=== PATIENT | female | born 1975 | race Caucasian/White ===

== ENCOUNTER 2017-02-18 12:09 | Emergency (ER) | payer OTHER ==
[~2017-02-18] VITALS: Ht 167.6 cm; Wt 80.1 kg
[2017-02-18] MEDS ORDERED: PREDNISONE20 MG PO (13:46)
[2017-02-18] MEDS ORDERED: KEFLEX500 MG PO (13:46)
== END 2017-02-18 13:57 | disposition home or self-care (01) ==
LOC: EME 12:09
DX: T63.441A Toxic effect of venom of bees, accidental (unintentional), initial encounter (principal)
CPT/HCPCS: 99281; 99283; J7512

== ENCOUNTER 2017-03-15 08:11 | Emergency (ER) | payer OTHER ==
[~2017-03-15] VITALS: Ht 167.6 cm; Wt 79.0 kg
[~2017-03-15 08:11] MED LIST: KEFLEX500 MG PO; PREDNISONE20 MG PO
[2017-03-15 09:27] LABS: BASOPHIL COUNT 0.1 K/uL (0-0.1); EOSINOPHIL (%) 2.2 % (0-5); EOSINOPHIL COUNT 0.2 K/uL (0-0.3); HEMATOCRIT 42.5 % (36.0-46.0); IMMATURE GRANULOCYTE (%) 0.3 % (0.0-0.7); INSTRUMENT ABS NEUTROPHIL CT 4.3 K/uL; LYMPHOCYTE COUNT 1.7 K/uL (1.0-2.8); MCH 29.2 PG (29.0-34.0); MCHC 32.7 G/DL (30.0-36.0); MCV 89.3 FL (83-99); MEAN PLAT.VOLUME 10.3 uM^3 (9.5-12.4); MONOCYTE (%) 8.4 % (3-12); MONOCYTE COUNT 0.6 K/uL (0-0.8); NEUTROPHIL (%) 63.8 % (45-76); NEUTROPHIL COUNT 4.3 K/uL (1.8-6.4); PLATELET COUNT 243 K/uL (156-360); RBC DIS.WIDTH-CV 12.6 % (11.8-14.6); RBC DIS.WIDTH-SD 41.6 % (39-53); RED BLOOD COUNT 4.76 M/uL (3.80-5.20); WHITE BLOOD COUNT 6.8 K/uL (4.1-10.2)
[2017-03-15 09:41] LABS: CHLORIDE 105 mEq/L (99-109); SODIUM 139 mEq/L (136-147)
[2017-03-15 09:43] LABS: GLUCOSE 97 mg/dL (70-99)
[2017-03-15 09:44] LABS: ANION GAP 11 MEQ/L (2-14)
[2017-03-15 09:45] LABS: TOTAL BILIRUBIN 0.4 mg/dL (0.0-1.0)
[2017-03-15 09:47] LABS: ALKALINE PHOSPHATASE 59 IU/L (3-129); GFR ESTIMATE (CALCULATED) > 59 mL/min/
[2017-03-15 09:48] LABS: UREA NITROGEN (BUN) 15 mg/dL (9-23)
[2017-03-15 10:00] LABS: QUANTITATIVE HCG < 4.0 MIU/ML
[2017-03-15 11:26] VITALS: BP 106/67
== END 2017-03-15 11:27 | disposition home or self-care (01) ==
LOC: EME 08:11
PROVIDERS: Physician Assistant
DX: G43.909 Migraine, unspecified, not intractable, without status migrainosus (principal)
CPT/HCPCS: 70486; 80053; 84702; 85025; 99281; 99285; J1100; J1200; J1885; J2765